=== PATIENT | female | born 1965 | race Hispanic/Latino ===

== ENCOUNTER 2018-10-06 14:37 | Emergency (ER) | payer SELFPAY ==
[2018-10-06] MEDS ORDERED: ASPIRIN 325 MG TABLET ONE (15:12)
== END 2018-10-06 16:16 | disposition home or self-care (01) ==
LOC: EDH 14:37
DX: R07.89 Other chest pain (principal); I10 Essential (primary) hypertension; F41.9 Anxiety disorder, unspecified; Z88.8 Allergy status to other drugs, medicaments and biological substances; Z90.710 Acquired absence of both cervix and uterus
CPT/HCPCS: 84484; 93005